=== PATIENT | male | born 1965 | race Caucasian/White ===

== ENCOUNTER 2020-12-17 02:33 | Inpatient (IN) | payer SELFPAY ==
[~2020-12-17] VITALS: Ht 165.1 cm; Wt 77.2 kg
[2020-12-17] MEDS ORDERED: SODIUM CHLORIDE 0.9% 1,000 ML IV ONE (03:15)
[2020-12-17] MEDS ORDERED: CEFTRIAXONE 1 G PREMIX 50 ML IV ONE (04:00)
[2020-12-17] MEDS ORDERED: AMIODARONE HCL 50MG/ML 3ML VIAL IV ONE (04:00)
[2020-12-17] MEDS ORDERED: SODIUM BICARBONATE 8.4% 1 MEQ/ML 50ML SYR IV ONE (04:00)
[2020-12-17] MEDS ORDERED: EPINEPHRINE 0.1MG/ML (1:10,000) 10ML SYR ONE (04:00)
[2020-12-17] MEDS ORDERED: AZITHROMYCIN 500 MG in DEXT 5% WATER 250 ML IV ONE (04:00)
[2020-12-17 04:18] LABS: BG FRACTION INSPIRED OXYGEN 100; BG HCO3 ACT 22.9 mmol/L (22.0-26.0); BG PCO2 35.9 mmHg (35.0-45.0); BG PH 7.423 (7.350-7.450); BG PO2 111.6 mmHg (75.0-100.0); BG SAMPLE SITE RIGHT RADIAL; BG VENT MODE MASK - NRB
[2020-12-17 04:33] LABS: HEMATOCRIT. 28.3 % (42.0-52.0); HEMOGLOBIN. 9.4 g/dL (14.0-18.0); MEAN CORPUSCULAR HEMOGLOBIN 29.6 pg (28.0-32.0); MEAN CORPUSCULAR VOLUME 89.5 fL (80.0-94.0); MEAN PLATELET VOLUME 7.6 fl (7.4-10.4); PLATELET 513 x1000/uL (130-400); RED BLOOD CELL COUNT 3.17 mill/uL (4.7-6.1)
[2020-12-17 04:47] LABS: D-DIMER 18.35 mg/L FEU (<0.50); INR 1.2; PROTHROMBIN TIME 12.2 sec (9.6-11.0)
[2020-12-17 04:54] LABS: CHLORIDE 100 mEq/L (98-107)
[2020-12-17 04:58] LABS: ETHANOL BLOOD < 10 mg/dL
[2020-12-17 05:00] LABS: BETA HYDROXYBUTYRATE 0.1 mMol/L (0.0-0.3)
[2020-12-17] MEDS ORDERED: DEXAMETHASONE 10 MG/ML VIAL IV SCH (05:15)
[2020-12-17] MEDS ORDERED: ENOXAPARIN 80MG/0.8ML SYR SUBCUT SCH (05:15)
[2020-12-17 05:45] LABS: PLATELET ESTIMATE INCREASED
[2020-12-17] MEDS ORDERED: DOCUSATE SODIUM 100MG CAPSULE PO PRN (08:00)
[2020-12-17] MEDS ORDERED: DEXTROSE 50% WATER 50ML SYRINGE IV PRN (08:00)
[2020-12-17] MEDS ORDERED: ACETAMINOPHEN 325MG TABLET PO PRN (08:00)
[2020-12-17] MEDS ORDERED: ONDANSETRON HCL 4MG/2ML INJ IV PRN (08:00)
[2020-12-17] MEDS ORDERED: CLONIDINE 0.1MG TABLET PO PRN (08:00)
[2020-12-17] MEDS ORDERED: ACETAMINOPHEN 650MG/20.3ML UDC GT PRN (08:00)
[2020-12-17] MEDS ORDERED: MAGNESIUM/ALUMINUM HYDROXIDE/SIMETHICONE 30ML UDC PO PRN (08:00)
[2020-12-17] MEDS ORDERED: CEFTRIAXONE 1 G PREMIX 50 ML IV SCH (08:00)
[2020-12-17] MEDS: BLOOD SUGAR DIAGNOSTIC STRIP TEST SCH ×4 (08:35→21:19)
[2020-12-17] MEDS: INSULIN LISPRO 100 UNITS/ML SUBCUT SCH ×4 (08:35→21:21)
[2020-12-17] MEDS ORDERED: NA PHOS,M-B/NA PHOS,DI-BA ENEMA 118ML PR PRN (09:00)
[2020-12-17 10:44] LABS: CHLORIDE 100 mEq/L (98-107)
[2020-12-17 12:00] VITALS: BP 121/78
[2020-12-17 13:47] VITALS: BP 142/78
[2020-12-17] MEDS: ERGOCALCIFEROL 50000UNITS CAPSULE PO SCH (17:32)
[2020-12-17] MEDS: ASCORBIC ACID 500 MG TABLET PO SCH (21:19)
[2020-12-17] MEDS: DIPHENHYDRAMINE 50MG/ML VIAL IV PRN (21:20)
[2020-12-18] VITALS: BP 132/82
[2020-12-18 04:00] VITALS: BP 133/69
[2020-12-18] MEDS: CEFTRIAXONE 1,000 MG in DEXTROSE 5% WATER 50 ML IV SCH (04:30)
[2020-12-18] MEDS ORDERED: AZITHROMYCIN 500 MG in DEXT 5% WATER 250 ML IV SCH (05:00)
[2020-12-18 05:25] LABS: CHLORIDE 102 mEq/L (98-107)
[2020-12-18 05:45] LABS: LDL CHOLESTEROL 50 mg/dL (5-100)
[2020-12-18 05:46] LABS: HDL CHOLESTEROL 37 mg/dL (40-59)
[2020-12-18 05:47] LABS: HEMATOCRIT. 30.4 % (42.0-52.0); HEMOGLOBIN. 10.1 g/dL (14.0-18.0); MEAN CORPUSCULAR HEMOGLOBIN 29.6 pg (28.0-32.0); MEAN CORPUSCULAR VOLUME 88.7 fL (80.0-94.0); MEAN PLATELET VOLUME 7.7 fl (7.4-10.4); PLATELET 491 x1000/uL (130-400); RED BLOOD CELL COUNT 3.42 mill/uL (4.7-6.1); RED CELL DISTRIBUTION WIDTH 13.1 % (11.6-14.6)
[2020-12-18] MEDS: BLOOD SUGAR DIAGNOSTIC STRIP TEST SCH ×4 (07:59→21:29)
[2020-12-18] MEDS: INSULIN LISPRO 100 UNITS/ML SUBCUT SCH ×4 (07:59→21:29)
[2020-12-18] MEDS ORDERED: DEXAMETHASONE 10 MG/ML VIAL IV SCH (09:00)
[2020-12-18] MEDS: ASCORBIC ACID 500 MG TABLET PO SCH ×2 (09:34→20:56)
[2020-12-18] MEDS: ENOXAPARIN 40MG/0.4ML SYR SUBCUT SCH (09:35)
[2020-12-18 11:14] LABS: BG CARBOXYHEMOGLOBIN 0.3 % (0.5-1.5); BG DEOXYHEMOGLOBIN 2.6 % (0.0-5.0); BG FRACTION INSPIRED OXYGEN 100; BG HCO3 ACT 23.3 mmol/L (22.0-26.0); BG METHEMOGLOBIN 0.3 % (0.0-1.5); BG OXYGEN SATURATION 97.4 % (92.0-98.5); BG OXYHEMOGLOBIN 96.8 % (94.0-97.0); BG PCO2 33.1 mmHg (35.0-45.0); BG PH 7.466 (7.350-7.450); BG PO2 104.7 mmHg (75.0-100.0); BG SAMPLE SITE RIGHT RADIAL; BG TOTAL HEMOGLOBIN 10.2 g/dL (12.0-18.0); BG TOTAL RESPIRATORY RATE 38 b/min; BG VENT MODE MASK - BIPAP
[2020-12-18 12:00] VITALS: BP 109/52
[2020-12-18 13:43] LABS: PLATELET ESTIMATE NORMAL
[2020-12-18 16:00] VITALS: BP_SYST 132; BP_SYST 142; BP_DIAS 87
[2020-12-18 20:00] VITALS: BP 135/90
[2020-12-18] MEDS: DIPHENHYDRAMINE 50MG/ML VIAL IV PRN (20:57)
[2020-12-18] MEDS ORDERED: TRAZODONE HCL 50MG TABLET PO PRN (21:00)
[2020-12-18] MEDS ORDERED: IVERMECTIN 3 MG TABLET PO NR (23:00)
[2020-12-19] VITALS (88 sets, daily range): BP systolic 45–234; BP diastolic 23–133
[2020-12-19] MEDS: AZITHROMYCIN 500 MG in DEXT 5% WATER 250 ML IV SCH ×2 (00:15→22:22)
[2020-12-19] MEDS: CEFTRIAXONE 1,000 MG in DEXTROSE 5% WATER 50 ML IV SCH (04:24)
[2020-12-19] MEDS: BLOOD SUGAR DIAGNOSTIC STRIP TEST SCH ×3 (06:36→17:54)
[2020-12-19] MEDS ORDERED: IPRATROPIUM/ALBUTEROL 0.5-3(2.5)MG/3ML NEB HHN PRN (09:00)
[2020-12-19] MEDS ORDERED: MIDAZOLAM HCL 100 MG in DEXT 5% WATER 80 ML IV PRN (09:30)
[2020-12-19] MEDS ORDERED: MIDAZOLAM 100MG/100ML PREMIX IV PRN (09:30)
[2020-12-19] MEDS ORDERED: LIDOCAINE HCL 1% 20ML VIAL (Pyxis) INJ ONE (10:06)
[2020-12-19] MEDS: FENTANYL CITRATE/PF 2,500 MCG in SODIUM CHLORIDE 0.9% 200 ML IV PRN (10:13)
[2020-12-19] MEDS ORDERED: NOREPINEPHRINE 32 MG in DEXT 5% WATER 218 ML IV PRN (10:15)
[2020-12-19] MEDS ORDERED: PHENYLEPHRINE 100 MG in DEXT 5% WATER 240 ML IV PRN (10:45)
[2020-12-19 12:02] LABS: BG BASE EXCESS -9.9 mmol/L (-2.0-2.0); BG FRACTION INSPIRED OXYGEN 100; BG HCO3 ACT 18.7 mmol/L (22.0-26.0); BG PCO2 51.2 mmHg (35.0-45.0); BG PO2 97.4 mmHg (75.0-100.0); BG SAMPLE SITE RIGHT RADIAL; BG TOTAL RESPIRATORY RATE 33 b/min; BG VENT MODE VENT - AC
[2020-12-19 12:09] LABS: HEMOGLOBIN. 9.8 g/dL (14.0-18.0); MEAN CORPUSCULAR HEMOGLOBIN 30.1 pg (28.0-32.0); MEAN PLATELET VOLUME 7.4 fl (7.4-10.4); PLATELET 431 x1000/uL (130-400); RED BLOOD CELL COUNT 3.26 mill/uL (4.7-6.1); RED CELL DISTRIBUTION WIDTH 13.4 % (11.6-14.6)
[2020-12-19 12:17] LABS: CHLORIDE 99 mEq/L (98-107)
[2020-12-19 12:22] LABS: PHOSPHORUS 7.8 mg/dL (2.5-4.9)
[2020-12-19 12:24] LABS: INR 1.4; PROTHROMBIN TIME 14.2 sec (9.6-11.0)
[2020-12-19] MEDS ORDERED: DEXTROSE 50% WATER 50ML SYRINGE IV PRN ×2 (12:30)
[2020-12-19] MEDS: DEXAMETHASONE 10 MG/ML VIAL IV SCH (13:51)
[2020-12-19] MEDS: INSULIN LISPRO 100 UNITS/ML SUBCUT SCH ×2 (13:51→18:13)
[2020-12-19] MEDS: ASCORBIC ACID 500 MG TABLET PO SCH ×2 (13:51→22:14)
[2020-12-19] MEDS: ENOXAPARIN 40MG/0.4ML SYR SUBCUT SCH (13:52)
[2020-12-19] MEDS ORDERED: AMIODARONE HCL 900 MG in DEXT 5% WATER 482 ML IV PRN (14:00)
[2020-12-19 14:12] LABS: CLARITY URINE CLEAR (CLEAR); COLOR URINE YELLOW (YELLOW); KETONES URINE 1+ (NEGATIVE); LEUKOCYTE ESTERASE URINE NEGATIVE (NEGATIVE); NITRITE URINE NEGATIVE (NEGATIVE); OCCULT BLOOD URINE 1+ (NEGATIVE); PH URINE 6.5 (4.5-8.0); PROTEIN URINE 2+ (NEGATIVE); SPECIFIC GRAVITY URINE 1.025 (1.005-1.030)
[2020-12-19 14:26] LABS: PLATELET ESTIMATE INCREASED
[2020-12-19] MEDS: EPINEPHRINE 10 MG in SODIUM CHLORIDE 0.9% 240 ML IV PRN (16:07)
[2020-12-19] MEDS ORDERED: SODIUM CHLORIDE 0.9% 500 ML IV NR (20:45)
[2020-12-19] MEDS: IPRATROPIUM/ALBUTEROL 0.5-3(2.5)MG/3ML NEB HHN SCH (20:46)
[2020-12-20] VITALS (102 sets, daily range): BP systolic 49–214; BP diastolic 20–134
[2020-12-20] MEDS: CEFEPIME 1,000 MG in DEXTROSE 5% WATER 50 ML IV SCH ×2 (00:11→09:15)
[2020-12-20] MEDS: INSULIN LISPRO 100 UNITS/ML SUBCUT SCH ×4 (00:59→18:34)
[2020-12-20] MEDS: IPRATROPIUM/ALBUTEROL 0.5-3(2.5)MG/3ML NEB HHN SCH ×4 (03:07→20:11)
[2020-12-20 05:41] LABS: HEMATOCRIT. 30.8 % (42.0-52.0); HEMOGLOBIN. 10.1 g/dL (14.0-18.0); MEAN CORPUSCULAR HEMOGLOBIN 29.4 pg (28.0-32.0); MEAN CORPUSCULAR VOLUME 89.8 fL (80.0-94.0); PLATELET 380 x1000/uL (130-400); RED BLOOD CELL COUNT 3.43 mill/uL (4.7-6.1); RED CELL DISTRIBUTION WIDTH 13.3 % (11.6-14.6)
[2020-12-20 05:50] LABS: CHLORIDE 101 mEq/L (98-107)
[2020-12-20] MEDS: BLOOD SUGAR DIAGNOSTIC STRIP TEST SCH ×4 (06:00→18:29)
[2020-12-20] MEDS: DEXAMETHASONE 10 MG/ML VIAL IV SCH (09:15)
[2020-12-20] MEDS: ASCORBIC ACID 500 MG TABLET PO SCH ×2 (09:16→21:33)
[2020-12-20] MEDS: IVERMECTIN 3 MG TABLET PO NR (09:16)
[2020-12-20] MEDS: ENOXAPARIN 40MG/0.4ML SYR SUBCUT SCH (09:17)
[2020-12-20] MEDS: FENTANYL CITRATE/PF 2,500 MCG in SODIUM CHLORIDE 0.9% 200 ML IV PRN (09:54)
[2020-12-20] MEDS ORDERED: DEXTROSE 50% WATER 50ML SYRINGE IV PRN (10:30)
[2020-12-20] MEDS: SODIUM CHLORIDE 0.45% 1,000 ML IV SCH (10:30)
[2020-12-20] MEDS ORDERED: LORAZEPAM 2MG/ML CPJ IV PRN (11:15)
[2020-12-20 11:55] LABS: BG BASE EXCESS -5.3 mmol/L (-2.0-2.0); BG CARBOXYHEMOGLOBIN 0.3 % (0.5-1.5); BG FRACTION INSPIRED OXYGEN 100; BG HCO3 ACT 22.5 mmol/L (22.0-26.0); BG METHEMOGLOBIN 0.3 % (0.0-1.5); BG OXYHEMOGLOBIN 98.4 % (94.0-97.0); BG PCO2 55.5 mmHg (35.0-45.0); BG PH 7.226 (7.350-7.450); BG PO2 254.6 mmHg (75.0-100.0); BG SAMPLE SITE RIGHT RADIAL; BG TOTAL HEMOGLOBIN 10.4 g/dL (12.0-18.0); BG VENT MODE VENT - AC
[2020-12-20 17:10] LABS: PLATELET ESTIMATE NORMAL
[2020-12-20] MEDS: EPINEPHRINE 10 MG in SODIUM CHLORIDE 0.9% 240 ML IV PRN (21:52)
[2020-12-20] MEDS: AZITHROMYCIN 500 MG in DEXT 5% WATER 250 ML IV SCH (22:14)
[2020-12-21] VITALS (93 sets, daily range): BP systolic 42–172; BP diastolic 25–109
[2020-12-21] MEDS: SODIUM CHLORIDE 0.45% 1,000 ML IV SCH ×2 (00:42→14:18)
[2020-12-21] MEDS: BLOOD SUGAR DIAGNOSTIC STRIP TEST SCH ×4 (00:45→17:22)
[2020-12-21] MEDS: INSULIN LISPRO 100 UNITS/ML SUBCUT SCH ×4 (00:58→17:56)
[2020-12-21] MEDS: FENTANYL CITRATE/PF 2,500 MCG in SODIUM CHLORIDE 0.9% 200 ML IV PRN ×3 (01:43→20:33)
[2020-12-21] MEDS: IPRATROPIUM/ALBUTEROL 0.5-3(2.5)MG/3ML NEB HHN SCH ×4 (01:52→20:26)
[2020-12-21] MEDS: ACETAMINOPHEN 650MG/20.3ML UDC GT PRN (02:13)
[2020-12-21] MEDS: EPINEPHRINE 10 MG in SODIUM CHLORIDE 0.9% 240 ML IV PRN ×3 (03:14→12:32)
[2020-12-21 05:39] LABS: CHLORIDE 110 mEq/L (98-107)
[2020-12-21 05:42] LABS: HEMATOCRIT. 30.8 % (42.0-52.0); HEMOGLOBIN. 9.8 g/dL (14.0-18.0); MEAN CORPUSCULAR HEMOGLOBIN 29.1 pg (28.0-32.0); MEAN CORPUSCULAR VOLUME 91.3 fL (80.0-94.0); MEAN PLATELET VOLUME 8.3 fl (7.4-10.4); PLATELET 348 x1000/uL (130-400); RED BLOOD CELL COUNT 3.38 mill/uL (4.7-6.1)
[2020-12-21] MEDS ORDERED: CEFEPIME 1,000 MG in DEXTROSE 5% WATER 50 ML IV SCH (09:00)
[2020-12-21] MEDS: ASCORBIC ACID 500 MG TABLET PO SCH ×2 (09:38→21:53)
[2020-12-21] MEDS: DEXAMETHASONE 10 MG/ML VIAL IV SCH (09:38)
[2020-12-21] MEDS: ENOXAPARIN 40MG/0.4ML SYR SUBCUT SCH (09:48)
[2020-12-21] MEDS: IVERMECTIN 3 MG TABLET PO NR (09:54)
[2020-12-21] MEDS: DOPAMINE 400MG/250ML PREMIX 250 ML IV PRN ×2 (09:58→15:57)
[2020-12-21] MEDS ORDERED: ATROPINE SULFATE 1MG/ML VIAL IV PRN (11:00)
[2020-12-21 14:28] LABS: *AMPHETAMINES SCREEN URINE NEGATIVE (NEGATIVE); *BARBITURATES SCREEN URINE NEGATIVE (NEGATIVE); *BENZODIAZEPINES SCREEN URINE PRESUMTIVE POSITIVE (NEGATIVE); *COCAINE SCREEN URINE NEGATIVE (NEGATIVE)
[2020-12-21 14:29] LABS: CANNABINOID URINE SCREEN NEGATIVE (NEGATIVE); METHADONE URINE SCREEN NEGATIVE (NEGATIVE); OPIATES URINE SCREEN NEGATIVE (NEGATIVE); PHENCYCLIDINE URINE SCREEN NEGATIVE (NEGATIVE)
[2020-12-21 14:35] LABS: BG BASE EXCESS -5.7 mmol/L (-2.0-2.0); BG CARBOXYHEMOGLOBIN 0.3 % (0.5-1.5); BG DEOXYHEMOGLOBIN 1.1 % (0.0-5.0); BG HCO3 ACT 21.8 mmol/L (22.0-26.0); BG METHEMOGLOBIN 0.1 % (0.0-1.5); BG OXYGEN SATURATION 98.9 % (92.0-98.5); BG OXYHEMOGLOBIN 98.5 % (94.0-97.0); BG PCO2 51.1 mmHg (35.0-45.0); BG PH 7.247 (7.350-7.450); BG SAMPLE SITE RIGHT BRACHIAL; BG TOTAL HEMOGLOBIN 11.6 g/dL (12.0-18.0); BG VENT MODE VENT - AC
[2020-12-21 14:43] LABS: PLATELET ESTIMATE NORMAL
[2020-12-21 16:08] LABS: T4 FREE 0.86 ng/dL (0.76-1.46)
[2020-12-21] MEDS: MEROPENEM 1,000 MG in SODIUM CHLORIDE 0.9% 100 ML IV SCH (20:33)
[2020-12-21] MEDS ORDERED: VANCOMYCIN 1250MG in DEXTROSE 5% WATER 250ML IV NR (21:00)
[2020-12-21] MEDS: AZITHROMYCIN 500 MG in DEXT 5% WATER 250 ML IV SCH (21:53)
[2020-12-22] VITALS (97 sets, daily range): BP systolic 78–130; BP diastolic 50–90
[2020-12-22] MEDS: INSULIN LISPRO 100 UNITS/ML SUBCUT SCH ×4 (00:14→17:39)
[2020-12-22] MEDS: DOPAMINE 400MG/250ML PREMIX 250 ML IV PRN ×2 (01:46→07:28)
[2020-12-22] MEDS: IPRATROPIUM/ALBUTEROL 0.5-3(2.5)MG/3ML NEB HHN SCH ×5 (02:20→21:46)
[2020-12-22] MEDS: SODIUM CHLORIDE 0.45% 1,000 ML IV SCH ×3 (03:54→19:53)
[2020-12-22] MEDS: ACETAMINOPHEN 650MG/20.3ML UDC GT PRN (04:39)
[2020-12-22 05:35] LABS: HEMATOCRIT. 30.2 % (42.0-52.0); HEMOGLOBIN. 9.8 g/dL (14.0-18.0); MEAN CORPUSCULAR VOLUME 89.4 fL (80.0-94.0); MEAN PLATELET VOLUME 7.7 fl (7.4-10.4); PLATELET 249 x1000/uL (130-400); RED BLOOD CELL COUNT 3.38 mill/uL (4.7-6.1); RED CELL DISTRIBUTION WIDTH 13.9 % (11.6-14.6)
[2020-12-22 05:40] LABS: CHLORIDE 108 mEq/L (98-107)
[2020-12-22] MEDS: MEROPENEM 1,000 MG in SODIUM CHLORIDE 0.9% 100 ML IV SCH ×3 (05:45→20:01)
[2020-12-22] MEDS: BLOOD SUGAR DIAGNOSTIC STRIP TEST SCH ×4 (06:00→17:27)
[2020-12-22] MEDS: DEXAMETHASONE 10 MG/ML VIAL IV SCH (08:51)
[2020-12-22] MEDS: VANCOMYCIN 1 G PREMIX 200 ML IV SCH ×2 (08:51→21:22)
[2020-12-22] MEDS: ASCORBIC ACID 500 MG TABLET PO SCH ×2 (08:51→20:00)
[2020-12-22] MEDS: ENOXAPARIN 40MG/0.4ML SYR SUBCUT SCH (08:52)
[2020-12-22] MEDS: FENTANYL CITRATE/PF 2,500 MCG in SODIUM CHLORIDE 0.9% 200 ML IV PRN ×2 (09:39→19:57)
[2020-12-22 09:52] LABS: BG BASE EXCESS 2.1 mmol/L (-2.0-2.0); BG DEOXYHEMOGLOBIN 1.1 % (0.0-5.0); BG FRACTION INSPIRED OXYGEN 80; BG HCO3 ACT 26.7 mmol/L (22.0-26.0); BG METHEMOGLOBIN 0.3 % (0.0-1.5); BG OXYGEN SATURATION 98.9 % (92.0-98.5); BG OXYHEMOGLOBIN 98.6 % (94.0-97.0); BG PCO2 41.8 mmHg (35.0-45.0); BG PH 7.424 (7.350-7.450); BG PO2 199.7 mmHg (75.0-100.0); BG SAMPLE SITE LEFT RADIAL; BG TOTAL HEMOGLOBIN 10.2 g/dL (12.0-18.0); BG TOTAL RESPIRATORY RATE 40 b/min; BG VENT MODE VENT - AC
[2020-12-22 10:30] LABS: PLATELET ESTIMATE NORMAL
[2020-12-22] MEDS: DOCUSATE SODIUM SUGAR FREE 100MG/10ML UDC NG SCH (17:39)
[2020-12-23] VITALS (97 sets, daily range): BP systolic 94–167; BP diastolic 64–107
[2020-12-23] MEDS: IPRATROPIUM/ALBUTEROL 0.5-3(2.5)MG/3ML NEB HHN SCH ×6 (00:05→20:42)
[2020-12-23] MEDS: MEROPENEM 1,000 MG in SODIUM CHLORIDE 0.9% 100 ML IV SCH ×3 (03:49→20:47)
[2020-12-23] MEDS: BLOOD SUGAR DIAGNOSTIC STRIP TEST SCH ×5 (06:00→23:53)
[2020-12-23] MEDS: INSULIN LISPRO 100 UNITS/ML SUBCUT SCH ×5 (06:01→23:57)
[2020-12-23 06:07] LABS: CHLORIDE 106 mEq/L (98-107)
[2020-12-23] MEDS: FENTANYL CITRATE/PF 2,500 MCG in SODIUM CHLORIDE 0.9% 200 ML IV PRN ×2 (08:28→18:33)
[2020-12-23] MEDS: VANCOMYCIN 1 G PREMIX 200 ML IV SCH ×2 (09:01→20:47)
[2020-12-23] MEDS: ASCORBIC ACID 500 MG TABLET PO SCH ×2 (09:01→20:47)
[2020-12-23] MEDS: ENOXAPARIN 40MG/0.4ML SYR SUBCUT SCH (09:02)
[2020-12-23] MEDS: DOCUSATE SODIUM SUGAR FREE 100MG/10ML UDC NG SCH ×2 (09:02→17:32)
[2020-12-23] MEDS: DEXAMETHASONE 10 MG/ML VIAL IV SCH (09:02)
[2020-12-23 09:57] LABS: BG BASE EXCESS 3.1 mmol/L (-2.0-2.0); BG DEOXYHEMOGLOBIN 2.6 % (0.0-5.0); BG FRACTION INSPIRED OXYGEN 50; BG HCO3 ACT 27.9 mmol/L (22.0-26.0); BG METHEMOGLOBIN 0.3 % (0.0-1.5); BG OXYGEN SATURATION 97.4 % (92.0-98.5); BG OXYHEMOGLOBIN 97.1 % (94.0-97.0); BG PCO2 43.5 mmHg (35.0-45.0); BG PH 7.425 (7.350-7.450); BG PO2 107.5 mmHg (75.0-100.0); BG SAMPLE SITE LEFT RADIAL; BG TOTAL HEMOGLOBIN 9.6 g/dL (12.0-18.0); BG TOTAL RESPIRATORY RATE 42 b/min; BG VENT MODE VENT - AC
[2020-12-23] MEDS: SODIUM CHLORIDE 0.45% 1,000 ML IV SCH (17:33)
[2020-12-24] VITALS (95 sets, daily range): BP systolic 91–161; BP diastolic 52–111
[2020-12-24] MEDS: IPRATROPIUM/ALBUTEROL 0.5-3(2.5)MG/3ML NEB HHN SCH ×6 (00:24→20:50)
[2020-12-24] MEDS: MEROPENEM 1,000 MG in SODIUM CHLORIDE 0.9% 100 ML IV SCH ×3 (04:04→20:31)
[2020-12-24] MEDS: FENTANYL CITRATE/PF 2,500 MCG in SODIUM CHLORIDE 0.9% 200 ML IV PRN ×3 (04:05→19:53)
[2020-12-24 05:45] LABS: HEMATOCRIT. 29.3 % (42.0-52.0); HEMOGLOBIN. 9.7 g/dL (14.0-18.0); MEAN CORPUSCULAR HEMOGLOBIN 29.3 pg (28.0-32.0); MEAN CORPUSCULAR VOLUME 88.2 fL (80.0-94.0); MEAN PLATELET VOLUME 8.2 fl (7.4-10.4); PLATELET 265 x1000/uL (130-400); RED BLOOD CELL COUNT 3.32 mill/uL (4.7-6.1); RED CELL DISTRIBUTION WIDTH 13.7 % (11.6-14.6)
[2020-12-24 05:59] LABS: CHLORIDE 103 mEq/L (98-107)
[2020-12-24] MEDS: SODIUM CHLORIDE 0.45% 1,000 ML IV SCH ×2 (06:00→20:32)
[2020-12-24] MEDS: INSULIN LISPRO 100 UNITS/ML SUBCUT SCH ×4 (06:00→23:21)
[2020-12-24] MEDS: BLOOD SUGAR DIAGNOSTIC STRIP TEST SCH ×4 (06:21→23:20)
[2020-12-24 08:55] LABS: BG BASE EXCESS 3.1 mmol/L (-2.0-2.0); BG CARBOXYHEMOGLOBIN 0.3 % (0.5-1.5); BG DEOXYHEMOGLOBIN 3.3 % (0.0-5.0); BG HCO3 ACT 27.1 mmol/L (22.0-26.0); BG METHEMOGLOBIN 0.2 % (0.0-1.5); BG OXYGEN SATURATION 96.7 % (92.0-98.5); BG OXYHEMOGLOBIN 96.2 % (94.0-97.0); BG PCO2 38.9 mmHg (35.0-45.0); BG PH 7.461 (7.350-7.450); BG PO2 93.6 mmHg (75.0-100.0); BG SAMPLE SITE RIGHT RADIAL; BG TOTAL HEMOGLOBIN 9.6 g/dL (12.0-18.0); BG VENT MODE VENT - AC
[2020-12-24] MEDS: VANCOMYCIN 1 G PREMIX 200 ML IV SCH ×2 (09:20→20:32)
[2020-12-24] MEDS: DEXAMETHASONE 10 MG/ML VIAL IV SCH (09:20)
[2020-12-24] MEDS: ASCORBIC ACID 500 MG TABLET PO SCH ×2 (09:20→20:32)
[2020-12-24] MEDS: DOCUSATE SODIUM SUGAR FREE 100MG/10ML UDC NG SCH ×2 (09:20→17:25)
[2020-12-24] MEDS: ENOXAPARIN 40MG/0.4ML SYR SUBCUT SCH (09:20)
[2020-12-24] MEDS: ERGOCALCIFEROL 50000UNITS CAPSULE PO SCH (09:27)
[2020-12-24] MEDS ORDERED: FAMOTIDINE 20MG TABLET PO SCH (11:45)
[2020-12-24 13:18] LABS: PLATELET ESTIMATE NORMAL
[2020-12-24 15:43] LABS: BG CARBOXYHEMOGLOBIN 0.3 % (0.5-1.5); BG DEOXYHEMOGLOBIN 3.7 % (0.0-5.0); BG METHEMOGLOBIN 0.3 % (0.0-1.5); BG OXYGEN SATURATION 96.3 % (92.0-98.5); BG OXYHEMOGLOBIN 95.7 % (94.0-97.0); BG PCO2 36.9 mmHg (35.0-45.0); BG PH 7.448 (7.350-7.450); BG PO2 89.9 mmHg (75.0-100.0); BG SAMPLE SITE RIGHT RADIAL; BG TOTAL HEMOGLOBIN 10.1 g/dL (12.0-18.0); BG VENT MODE VENT - AC
[2020-12-24] MEDS ORDERED: METOCLOPRAMIDE HCL 10MG TABLET PO SCH (18:00)
[2020-12-24] MEDS: FAMOTIDINE 20MG/2ML VIAL IV SCH (20:32)
[2020-12-24] MEDS: METOCLOPRAMIDE HCL 10MG/2ML VIAL IV SCH (23:20)
[2020-12-25] VITALS (95 sets, daily range): BP systolic 63–171; BP diastolic 41–99
[2020-12-25] MEDS: FENTANYL CITRATE/PF 2,500 MCG in SODIUM CHLORIDE 0.9% 200 ML IV PRN ×3 (01:50→19:02)
[2020-12-25] MEDS: IPRATROPIUM/ALBUTEROL 0.5-3(2.5)MG/3ML NEB HHN SCH ×4 (03:05→20:56)
[2020-12-25] MEDS: MEROPENEM 1,000 MG in SODIUM CHLORIDE 0.9% 100 ML IV SCH ×3 (04:43→20:24)
[2020-12-25] MEDS: INSULIN LISPRO 100 UNITS/ML SUBCUT SCH ×3 (05:31→18:27)
[2020-12-25] MEDS: BLOOD SUGAR DIAGNOSTIC STRIP TEST SCH ×3 (05:31→18:30)
[2020-12-25] MEDS: METOCLOPRAMIDE HCL 10MG/2ML VIAL IV SCH ×3 (05:31→18:26)
[2020-12-25 06:00] LABS: MEAN CORPUSCULAR HEMOGLOBIN 29.3 pg (28.0-32.0); MEAN CORPUSCULAR VOLUME 88.1 fL (80.0-94.0); MEAN PLATELET VOLUME 8.1 fl (7.4-10.4); PLATELET 247 x1000/uL (130-400); RED BLOOD CELL COUNT 3.07 mill/uL (4.7-6.1); RED CELL DISTRIBUTION WIDTH 13.7 % (11.6-14.6)
[2020-12-25 06:46] LABS: CHLORIDE 103 mEq/L (98-107)
[2020-12-25] MEDS: SODIUM CHLORIDE 0.45% 1,000 ML IV SCH ×2 (06:51→10:56)
[2020-12-25] MEDS: FAMOTIDINE 20MG/2ML VIAL IV SCH ×2 (09:12→20:24)
[2020-12-25] MEDS: VANCOMYCIN 1 G PREMIX 200 ML IV SCH ×2 (09:12→20:24)
[2020-12-25] MEDS: DEXAMETHASONE 10 MG/ML VIAL IV SCH (09:12)
[2020-12-25] MEDS: ENOXAPARIN 40MG/0.4ML SYR SUBCUT SCH (09:12)
[2020-12-25] MEDS: DOCUSATE SODIUM SUGAR FREE 100MG/10ML UDC NG SCH ×2 (09:12→18:26)
[2020-12-25] MEDS: ASCORBIC ACID 500 MG TABLET PO SCH ×2 (09:13→20:24)
[2020-12-25 10:07] LABS: BG BASE EXCESS 3.3 mmol/L (-2.0-2.0); BG CARBOXYHEMOGLOBIN 0.4 % (0.5-1.5); BG DEOXYHEMOGLOBIN 4.8 % (0.0-5.0); BG FRACTION INSPIRED OXYGEN 50; BG HCO3 ACT 25.9 mmol/L (22.0-26.0); BG METHEMOGLOBIN 0.1 % (0.0-1.5); BG OXYGEN SATURATION 95.2 % (92.0-98.5); BG OXYHEMOGLOBIN 94.7 % (94.0-97.0); BG PCO2 31.3 mmHg (35.0-45.0); BG PH 7.535 (7.350-7.450); BG PO2 72.2 mmHg (75.0-100.0); BG SAMPLE SITE RIGHT RADIAL; BG TOTAL HEMOGLOBIN 8.2 g/dL (12.0-18.0); BG VENT MODE VENT - PRVC
[2020-12-25 10:50] LABS: PLATELET ESTIMATE NORMAL
[2020-12-25] MEDS ORDERED: LORAZEPAM 2MG/ML CPJ IM PRN (11:30)
[2020-12-25] MEDS ORDERED: PHENYLEPHRINE 100 MG in DEXT 5% WATER 240 ML IV PRN (21:45)
[2020-12-25] MEDS ORDERED: PHENYLEPHRINE 100 MG in DEXT 5% WATER 250 ML IV PRN (23:00)
[2020-12-26] VITALS (95 sets, daily range): BP systolic 91–148; BP diastolic 53–136
[2020-12-26] MEDS: BLOOD SUGAR DIAGNOSTIC STRIP TEST SCH ×5 (00:25→23:42)
[2020-12-26] MEDS: METOCLOPRAMIDE HCL 10MG/2ML VIAL IV SCH ×5 (00:25→23:42)
[2020-12-26] MEDS: INSULIN LISPRO 100 UNITS/ML SUBCUT SCH ×5 (00:26→23:42)
[2020-12-26] MEDS: LORAZEPAM 2MG/ML CPJ IV PRN ×2 (00:36→12:16)
[2020-12-26] MEDS: FENTANYL CITRATE/PF 2,500 MCG in SODIUM CHLORIDE 0.9% 200 ML IV PRN ×3 (02:44→17:46)
[2020-12-26] MEDS: IPRATROPIUM/ALBUTEROL 0.5-3(2.5)MG/3ML NEB HHN SCH ×4 (03:39→20:02)
[2020-12-26] MEDS: MEROPENEM 1,000 MG in SODIUM CHLORIDE 0.9% 100 ML IV SCH ×3 (04:32→21:29)
[2020-12-26] MEDS: ACETAMINOPHEN 650MG/20.3ML UDC GT PRN (05:35)
[2020-12-26 05:45] LABS: HEMATOCRIT. 31.7 % (42.0-52.0); HEMOGLOBIN. 10.7 g/dL (14.0-18.0); MEAN CORPUSCULAR HEMOGLOBIN 30.1 pg (28.0-32.0); MEAN CORPUSCULAR VOLUME 88.9 fL (80.0-94.0); MEAN PLATELET VOLUME 8.6 fl (7.4-10.4); PLATELET 287 x1000/uL (130-400); RED BLOOD CELL COUNT 3.57 mill/uL (4.7-6.1); RED CELL DISTRIBUTION WIDTH 13.6 % (11.6-14.6)
[2020-12-26 05:50] LABS: CHLORIDE 102 mEq/L (98-107)
[2020-12-26 05:59] LABS: PHOSPHORUS 2.5 mg/dL (2.5-4.9)
[2020-12-26] MEDS: ASCORBIC ACID 500 MG TABLET PO SCH ×2 (08:23→20:51)
[2020-12-26] MEDS: DOCUSATE SODIUM SUGAR FREE 100MG/10ML UDC NG SCH ×2 (08:23→17:56)
[2020-12-26] MEDS: FAMOTIDINE 20MG/2ML VIAL IV SCH ×2 (08:25→20:51)
[2020-12-26] MEDS: DEXAMETHASONE 10 MG/ML VIAL IV SCH (08:25)
[2020-12-26] MEDS: ENOXAPARIN 40MG/0.4ML SYR SUBCUT SCH (08:25)
[2020-12-26] MEDS: VANCOMYCIN 1 G PREMIX 200 ML IV SCH ×2 (08:25→20:51)
[2020-12-26 08:44] LABS: BG BASE EXCESS 1.5 mmol/L (-2.0-2.0); BG CARBOXYHEMOGLOBIN 0.3 % (0.5-1.5); BG DEOXYHEMOGLOBIN 1.1 % (0.0-5.0); BG HCO3 ACT 25.1 mmol/L (22.0-26.0); BG METHEMOGLOBIN 0.3 % (0.0-1.5); BG OXYGEN SATURATION 98.9 % (92.0-98.5); BG OXYHEMOGLOBIN 98.3 % (94.0-97.0); BG PCO2 35.8 mmHg (35.0-45.0); BG PH 7.464 (7.350-7.450); BG PO2 199.7 mmHg (75.0-100.0); BG SAMPLE SITE RIGHT RADIAL; BG VENT MODE VENT- PRVC
[2020-12-26] MEDS: SODIUM CHLORIDE 0.45% 1,000 ML IV SCH (14:50)
[2020-12-26 15:55] LABS: PLATELET ESTIMATE NORMAL
[2020-12-27] VITALS (97 sets, daily range): BP systolic 86–171; BP diastolic 49–107
[2020-12-27] MEDS: IPRATROPIUM/ALBUTEROL 0.5-3(2.5)MG/3ML NEB HHN SCH ×6 (00:12→21:36)
[2020-12-27] MEDS: FENTANYL CITRATE/PF 2,500 MCG in SODIUM CHLORIDE 0.9% 200 ML IV PRN (01:07)
[2020-12-27] MEDS: SODIUM CHLORIDE 0.45% 1,000 ML IV SCH ×2 (02:35→15:18)
[2020-12-27] MEDS: LORAZEPAM 2MG/ML CPJ IV PRN ×2 (04:26→22:05)
[2020-12-27] MEDS: METOCLOPRAMIDE HCL 10MG/2ML VIAL IV SCH ×4 (05:06→23:32)
[2020-12-27] MEDS: BLOOD SUGAR DIAGNOSTIC STRIP TEST SCH ×4 (05:06→23:32)
[2020-12-27] MEDS: FLUCONAZOLE 400MG/200ML BAG 200 ML IV SCH (05:06)
[2020-12-27] MEDS: INSULIN LISPRO 100 UNITS/ML SUBCUT SCH ×4 (05:07→23:33)
[2020-12-27 05:40] LABS: HEMATOCRIT. 30.6 % (42.0-52.0); MEAN CORPUSCULAR VOLUME 88.9 fL (80.0-94.0); PLATELET 244 x1000/uL (130-400); RED BLOOD CELL COUNT 3.44 mill/uL (4.7-6.1); RED CELL DISTRIBUTION WIDTH 14.1 % (11.6-14.6)
[2020-12-27 05:50] LABS: CHLORIDE 100 mEq/L (98-107)
[2020-12-27 08:23] LABS: PLATELET ESTIMATE NORMAL
[2020-12-27] MEDS: ENOXAPARIN 40MG/0.4ML SYR SUBCUT SCH (09:07)
[2020-12-27] MEDS: FAMOTIDINE 20MG/2ML VIAL IV SCH ×2 (09:07→21:16)
[2020-12-27] MEDS: ASCORBIC ACID 500 MG TABLET PO SCH ×2 (09:07→21:16)
[2020-12-27] MEDS: DEXAMETHASONE 10 MG/ML VIAL IV SCH (09:07)
[2020-12-27] MEDS: DOCUSATE SODIUM SUGAR FREE 100MG/10ML UDC NG SCH ×2 (09:11→18:05)
[2020-12-27] MEDS: ACETAMINOPHEN 650MG/20.3ML UDC GT PRN (09:27)
[2020-12-27 09:42] LABS: BG BASE EXCESS 1.3 mmol/L (-2.0-2.0); BG CARBOXYHEMOGLOBIN 0.5 % (0.5-1.5); BG DEOXYHEMOGLOBIN 5.9 % (0.0-5.0); BG FRACTION INSPIRED OXYGEN 60; BG HCO3 ACT 25.6 mmol/L (22.0-26.0); BG METHEMOGLOBIN 0.3 % (0.0-1.5); BG OXYGEN SATURATION 94.1 % (92.0-98.5); BG OXYHEMOGLOBIN 93.3 % (94.0-97.0); BG PCO2 39.2 mmHg (35.0-45.0); BG PH 7.432 (7.350-7.450); BG PO2 72.1 mmHg (75.0-100.0); BG SAMPLE SITE RIGHT RADIAL; BG TOTAL HEMOGLOBIN 10.2 g/dL (12.0-18.0); BG TOTAL RESPIRATORY RATE 21 b/min; BG VENT MODE PRVC
[2020-12-28] VITALS (46 sets, daily range): BP systolic 38–211; BP diastolic 20–121
[2020-12-28] MEDS: FENTANYL CITRATE/PF 2,500 MCG in SODIUM CHLORIDE 0.9% 200 ML IV PRN (03:05)
[2020-12-28] MEDS: FLUCONAZOLE 400MG/200ML BAG 200 ML IV SCH (03:06)
[2020-12-28] MEDS: IPRATROPIUM/ALBUTEROL 0.5-3(2.5)MG/3ML NEB HHN SCH ×2 (03:58→08:17)
[2020-12-28] MEDS: INSULIN LISPRO 100 UNITS/ML SUBCUT SCH (05:23)
[2020-12-28] MEDS: BLOOD SUGAR DIAGNOSTIC STRIP TEST SCH (05:23)
[2020-12-28] MEDS: SODIUM CHLORIDE 0.45% 1,000 ML IV SCH (05:23)
[2020-12-28] MEDS: METOCLOPRAMIDE HCL 10MG/2ML VIAL IV SCH (05:23)
[2020-12-28 09:26] LABS: HEMATOCRIT. 29.1 % (42.0-52.0); HEMOGLOBIN. 8.9 g/dL (14.0-18.0); MEAN CORPUSCULAR HEMOGLOBIN 29.3 pg (28.0-32.0); MEAN CORPUSCULAR VOLUME 95.2 fL (80.0-94.0); MEAN PLATELET VOLUME 9.7 fl (7.4-10.4); PLATELET 209 x1000/uL (130-400); RED BLOOD CELL COUNT 3.06 mill/uL (4.7-6.1)
[2020-12-28 09:28] LABS: CHLORIDE 95 mEq/L (98-107)
[2020-12-28 09:32] LABS: BG BASE EXCESS 1.4 mmol/L (-2.0-2.0); BG CARBOXYHEMOGLOBIN 0.7 % (0.5-1.5); BG DEOXYHEMOGLOBIN 11.7 % (0.0-5.0); BG FRACTION INSPIRED OXYGEN 100; BG METHEMOGLOBIN 0.1 % (0.0-1.5); BG OXYGEN SATURATION 88.2 % (92.0-98.5); BG OXYHEMOGLOBIN 87.5 % (94.0-97.0); BG PCO2 53.5 mmHg (35.0-45.0); BG PH 7.336 (7.350-7.450); BG PO2 56.1 mmHg (75.0-100.0); BG SAMPLE SITE RIGHT RADIAL; BG TOTAL RESPIRATORY RATE 27 b/min; BG VENT MODE VENT - AC
[2020-12-28 11:01] LABS: PLATELET ESTIMATE NORMAL
[2020-12-28 18:45] LABS: PHOSPHORUS 4.6 mg/dL (2.5-4.9)
== END 2020-12-28 09:52 | disposition expired | DRG 720 ==
LOC: ER 02:33 → 7WST 04:45 → ENRESERV 09:25 → MICUNO 12-19 09:00
PROVIDERS: ADMIT Family Medicine; ATTEND Family Medicine
PROC: 5A09357 Assistance with Respiratory Ventilation, Less than 24 Consecutive Hours, Continuous Positive Airway Pressure (ICD-10-PCS; 2020-12-18)
PROC: 0BH17EZ Insertion of Endotracheal Airway into Trachea, Via Natural or Artificial Opening (ICD-10-PCS; principal; 2020-12-19)
PROC: 5A1955Z Respiratory Ventilation, Greater than 96 Consecutive Hours (ICD-10-PCS; 2020-12-19)
PROC: 5A12012 Performance of Cardiac Output, Single, Manual (ICD-10-PCS; 2020-12-19)
PROC: 05HY33Z Insertion of Infusion Device into Upper Vein, Percutaneous Approach (ICD-10-PCS; 2020-12-19)
PROC: B54MZZA Ultrasonography of Right Upper Extremity Veins, Guidance (ICD-10-PCS; 2020-12-19)
DX: A41.89 Other specified sepsis (principal); U07.1 COVID-19; J96.01 Acute respiratory failure with hypoxia; J12.82 Pneumonia due to coronavirus disease 2019; I10 Essential (primary) hypertension; E87.2 Acidosis; E11.9 Type 2 diabetes mellitus without complications; D64.9 Anemia, unspecified; I47.2 Ventricular tachycardia; I46.9 Cardiac arrest, cause unspecified; Z86.16 Personal history of COVID-19; R65.21 Severe sepsis with septic shock; D89.839 Cytokine release syndrome, grade unspecified; K72.00 Acute and subacute hepatic failure without coma
CPT/HCPCS: 36415; 36600; 71045; 71275; 74018; 76937; 80048; 80053; 80061; 80202; 80305; 80320; 81003; 82010; 82375; 82728; 82805; 82962; 83036; 83605; 83615; 83735; 84100; 84145; 84439; 84443; 84481; 84484; 85025; 85379; 86140; 87070; 92950; 93005; 93306; 93970; 94003; 94640; 94660; 99291; C1725; C1769; J0282; J0456; J0692; J0696; J1100; J1200; J1265; J1450; J1650; J1815; J2060; J2185; J2250; J2370; J2765; J3010; J3370; J3490; J7030; J7040; J7050; J7060; J8597; U0003; A4315; G0480